=== PATIENT | male | born 1940 | race Caucasian/White ===

== ENCOUNTER → 2022-02-07 | Outpatient (CLI) | payer OTHER ==
--- NOTE | 2022-02-07 13:28 | XR ---
EXAMINATION TYPE: XR chest 2V DATE OF EXAM: 02/07/2022 COMPARISON: NONE HISTORY: Acute bronchitis. History of lung cancer and surgery 20 years ago. Cough for 3 weeks. TECHNIQUE: Frontal and lateral views of the chest are obtained. FINDINGS: There is triangular shaped opacity in the lingula on 2 views. Slightly elevated left ranjith diaphragm. Overlying Sternal wires and mediastinal clips are seen. The cardiac silhouette size is wit hin normal limits. The osseous structures are intact. IMPRESSION: Chronic changes. Lingular findings favor scarring and/or atelectasis. Correlation with o ld outside imaging would be beneficial to exclude other etiologies.
== END | disposition home or self-care (01) ==
LOC: RADXRYALE 10:04
PROVIDERS: ATTEND Internal Medicine
DX: J20.8 Acute bronchitis due to other specified organisms (principal)
CPT/HCPCS: 71046

== ENCOUNTER 2022-02-08 17:50 | Emergency (ER) | payer MEDICARE, OTHER ==
[2022-02-08 18:04] VITALS: BP 160/67; PULSE 89; RESP 20; TEMP 97.6
[2022-02-08 18:35] LABS: Basophils % (A) 0 %; Eosinophils # (A) 0.1 k/uL (0-0.7); Eosinophils % (A) 1 %; HCT 43.4 % (39.0-53.0); HGB 14.6 gm/dL (13.0-17.5); Lymphocytes # (A) 0.5 k/uL (1.0-4.8); Lymphocytes % (A) 8 %; MCH 30.5 pg (25.0-35.0); MCHC 33.6 g/dL (31.0-37.0); MCV 90.9 fL (80.0-100.0); Monocytes # (A) 0.4 k/uL (0-1.0); Monocytes % (A) 6 %; Neutrophils # (A) 5.9 k/uL (1.3-7.7); Neutrophils % (A) 85 %; Platelet Count 185 k/uL (150-450); RBC 4.77 m/uL (4.30-5.90)
[2022-02-08 18:44] LABS: Albumin 4.6 g/dL (3.5-5.0); Calcium 9.2 mg/dL (8.4-10.2); Potassium 4.8 mmol/L (3.5-5.1); Total Bilirubin 0.7 mg/dL (0.2-1.3); Total Protein 8.9 g/dL (6.3-8.2)
[2022-02-08 19:07] LABS: Prothrombin Time 10.7 sec (9.0-12.0)
[2022-02-08 19:14] LABS: Partial Thromboplastin Time 21.5 sec (22.0-30.0)
--- NOTE | 2022-02-08 19:18 | XR ---
EXAMINATION TYPE: XR chest 2V DATE OF EXAM: 02/08/2022 6:33 PM COMPARISON: Chest radiographs from02/07/2022. TECHNIQUE: XR chest 2V Frontal and lateral views of the chest CLINICAL INDICATION:Male, 81 years old with history of Pain; FINDINGS: Lungs/Pleura: Prominent interstitial lung markings are seen scattered throughout the lungs. No eviden ce of focal consolidation, pneumothorax or pleural effusion. Pulmonary vascularity: Unremarkable. Heart/mediastinum: Cardiomediastinal silhouette is unremarkable. Musculoskeletal: No acute osseous pathology. Midline sternotomy wires and surgical clips project over the mediastinum. IMPRESSION: Chronic changes without acute pulmonary process. No significant change from prior.
== END 2022-02-08 21:55 | disposition left against medical advice (07) ==
LOC: EC 17:50
DX: Z53.21 Procedure and treatment not carried out due to patient leaving prior to being seen by health care provider (principal)
CPT/HCPCS: 36415; 71046; 80053; 84484; 85025; 85610; 85730; 93005; 99499

== ENCOUNTER → 2023-12-14 | Outpatient (CLI) | payer MEDICARE ==
--- NOTE | 2023-12-14 11:09 | XR ---
EXAMINATION TYPE: XR chest 2V DATE OF EXAM: 12/14/2023 10:39 AM CLINICAL INDICATION: Male, 83 years old with history of [id number] CONSTIPATION,COUGH; [facility] COMPARISON: Chest radiographs from 02/08/2022 TECHNIQUE: XR chest 2V Frontal view of the chest. FINDINGS: Lungs/Pleura: There is no evidence of pleural effusion, focal consolidation, or pneumothorax. Pulmonary vascularity: Unremarkable. Heart/mediastinum: Cardiomediastinal silhouette is enlarged. Musculoskeletal: No acute osseous pathology. Midline sternotomy wires are noted. IMPRESSION: No acute cardiopulmonary disease/process. [facility], , 12/14/2023 11:07 AM
--- NOTE | 2023-12-14 11:21 | XR ---
EXAMINATION TYPE: XR abdomen 2V DATE OF EXAM: 12/14/2023 10:39 AM CLINICAL INDICATION: Male, 83 years old with history of [id number] CONSTIPATION,COUGH; [facility] COMPARISON: None. TECHNIQUE: Two views of the abdomen were obtained. FINDINGS: The bowel gas pattern is nonspecific without dilated loops of small or large bowel. There i s no evidence for organomegaly or pneumoperitoneum. The osseous structures are intact. Pelvic phleb oliths are present. Fecal material and gas are demonstrated throughout the colon and rectum. Right upper quadrant clips likely. Mild degeneration changes throughout the spine. Right hip arthroplasty c hanges appear intact. Severe degeneration changes with joint space narrowing and osteophyte formation . Left pelvis surgical clips are IMPRESSION: 1. Nonspecific bowel gas pattern without radiographic evidence for acute process. 2. Severe left hip osteoarthrosis. 3. Hip arthroplasty appears in appropriate position. [facility], , 12/14/2023 11:19 AM
== END | disposition home or self-care (01) ==
LOC: RADXRYALE 10:20
PROVIDERS: ATTEND Internal Medicine
DX: K59.00 Constipation, unspecified (principal); R05.9 Cough, unspecified; M16.12 Unilateral primary osteoarthritis, left hip
CPT/HCPCS: 71046; 74019